=== PATIENT | female | born 1985 | race Caucasian/White ===

== ENCOUNTER 2018-05-12 05:27 | Inpatient (IN) | payer MEDICAID ==
[~2018-05-12] VITALS: Ht 154.9 cm; Wt 86.9 kg
[~2018-05-12 05:27] MED LIST: FERR27TA PO; PREN1TAB49 PO
[2018-05-12] MEDS ORDERED: CEFAZOLIN 2 GM/50 ML (PMX) 50 ML IVPB SCH (06:00)
[2018-05-12] MEDS ORDERED: CARBOPROST 250 MCG INJ IM PRN (06:00)
[2018-05-12] MEDS ORDERED: OXYTOCIN 30 UNITS/LR 500 ML IV SCH (06:00)
[2018-05-12] MEDS ORDERED: METHYLERGONOVINE 0.2 MG INJ IM PRN (06:00)
[2018-05-12] MEDS ORDERED: MISOPROSTOL 200 MCG TAB PR PRN ×2 (06:00→08:00)
[2018-05-12] MEDS ORDERED: OXYTOCIN 30 UNITS/LR 500 ML IV PRN (06:00)
[2018-05-12 06:06] VITALS: Ht 154.9 cm; Wt 86.9 kg
[2018-05-12] MEDS ORDERED: EPHEDrine SULFATE 50 MG/5 ML SYG ONE (07:00)
[2018-05-12] MEDS ORDERED: LACTATED RINGER'S 1,000 ML IV ONE (07:21)
--- NOTE | 2018-05-12 07:21 | PREAC ---
Date/Time of Note Date/Time of Note DATE: 05/12/18 TIME: 07:20 Anesthesia Eval and Record Evaluation Time Pre-Procedure Interview DATE: 05/12/18 TIME: 07:20 Age 33 Sex female NPO: 8 hrs Preoperative diagnosis intrauterine Planned procedure repeat c section and bilateral tubal ligation Past Medical History Past Medical History: Includes Pulm: Asthma : : (3), Para:, Gestational age: (39.1), Gestational diabetes Surgery & Anesthesia Issues No known issue Meds Anticoagulation: No Beta Alistair within 24 hr: No Reason Beta Alistair not given: Pt. not on B-Alistair Reported Medications Ferrous Sulfate (Iron) 1 Tab Tablet, 1 TAB PO 05/13/12 Vits W-Ca,Fe,Fa(<1MG) () 1 Tab Tablet, 1 TAB PO 05/13/12 Current Medications Lactated Ringer's 1,000 ml @ 125 mls/hr Q8H IV ; Start 05/12/18 at 05:41 Cefazolin Sodium/ Dextrose 50 ml @ 100 mls/hr ONCE IVPB ; Start 05/12/18 at 06:00 Oxytocin/Lactated Ringer's 500 ml @ 125 mls/hr POST IV ; Start 05/12/18 at 06:00 Oxytocin/Lactated Ringer's 500 ml @ 0 mls/hr ONCE PRN IV .VAGINAL BLEEDING; Start 05/12/18 at 06:00 Methylergonovine Maleate (Methergine) 0.2 mg ONCE PRN IM .VAGINAL BLEEDING; Start 05/12/18 at 06:00 Carboprost Tromethamine (Hemabate) 250 mcg ONCE PRN IM .VAGINAL BLEEDING; Start 05/12/18 at 06:00 Misoprostol (Cytotec) 1,000 mcg ONCE PRN WI .VAGINAL BLEEDING; Start 05/12/18 at 06:00 Meds reviewed: Yes Allergies Uncoded Allergies: CONTRAST DYE (Allergy, Intermediate, EXTREME VOMITTING, 05/12/18) NKA (Allergy, 05/13/12) Allergies Reviewed: Yes Labs/Studies Labs Reviewed: Reviewed by anesthesiologist Result Diagram: 05/12/18 0600 Laboratory Tests 05/12/18 06:00 Blood Bank Test 05/12/18 06:00 Antibody Screen NEGATIVE Blood Type O POSITIVE Rh Immune Globulin Candidate NO test: N/A Pre-procedure Exam Airway: Adequate mouth opening, Adequate thyromental dist Mallampati: Mallampati II Teeth: Normal Lung: Normal Heart: Normal ASA Physical Status ASA physical status: 2 Emergency: None Planned Anesthetic Neuraxial: Spinal Planned Pain Management Sub-arachniod narcotics, Parenteral pain med Pre-operative Attestations Prior to commencing anesthesia and surgery, the patient was re-evaluated, there was verification of: *The patient's identity *The results of appropriate recent lab work and preoperative vital signs *The above evaluation not changing prior to induction *Anesthetic plan, risk benefits, alternative and complications discussed with patient/family; questions answered; patient/family understands, accepts and wishes to proceed. TRICE ESQUIVEL MD May 12, 2018 07:20
[2018-05-12] MEDS ORDERED: CITRIC ACID/NA CITRATE 30 ML CUP PO ONE (07:30)
[2018-05-12] MEDS ORDERED: FAMOTIDINE 20 MG INJ IV ONE (07:30)
[2018-05-12] MEDS ORDERED: METOCLOPRAMIDE 10 MG INJ IV ONE (07:30)
[2018-05-12] MEDS ORDERED: morphine SULFATE/PF (10 MG/10 ML) INJ ONE (07:39)
--- NOTE | 2018-05-12 07:39 | HP ---
Date/Time of Note Date/Time of Note DATE: 05/12/18 TIME: 07:37 OB - History Hx of Present Free Text/Dictation 33 O with EDC 05/17/2018 with IUP at 39.2 weeks with history of previous delivery, who desires to have repeat delivery and Permanent sterilization. I discussed with the patient the risks, benefits, indications, and alternatives of procedure including but not limited to risks of infection, bleeding, damage to other organs, bowel, bladder, hernia formation, scar formation, possibility of blood transfusion, possible need for emergency hysterectomy, as well as the fact that tubal ligation may fail and there is 1 to 2% risk of failure over lifetime of tubal ligations and the fact that tubal ligation is permanent and irreversible. She was allowed to ask questions. All her questions were answered. Informed consent has been obtained. Care: Good Care Ultrasounds: Normal mid trimester US Obstetrical Complications: Gestational Diabetes Medical Complications: None Past Family/Social History * Past Medical, Surgical, Family and Obstetric Histories reviewed from chart. OB Admission Exam Physical Exam HEENT: WNL Heart: Rhythm Normal Lungs: Clear, Equal Abdomen: WNL Extremities: Normal Reflexes: Normal Last 72 hours Lab Results CBC & BMP 05/12/18 06:00 OB Assessment/Plan Other Assessment: Assessment: IUP 39 weeks h/o previous Desires repeat Desires permanent sterilization GDM, Diet control Other plan: Repeat Delivery Tubal ligation may be done by either salpingectomy or modified Osiel BTL RAINER LAN MD May 12, 2018 07:39
[2018-05-12] MEDS ORDERED: LACTATED RINGER'S 1,000 ML IV SCH (07:40)
[2018-05-12] MEDS ORDERED: PHENYLephrine (100 MCG/ML) 5ML SYG ONE (07:51)
[2018-05-12] MEDS ORDERED: MEPERIDINE 25 MG INJ IV PRN (08:00)
[2018-05-12] MEDS ORDERED: FENTAnyl 50 MCG/ML VIAL IV PRN ×3 (08:00)
[2018-05-12] MEDS ORDERED: LANOLIN HPA 1 PKT TOP PRN (08:00)
[2018-05-12] MEDS ORDERED: NA PHOSPHATE/BIPHOS 133 ML ENEMA PR PRN (08:00)
[2018-05-12] MEDS ORDERED: DIPHENHYDRAMINE 50 MG INJ IV PRN ×2 (08:00→09:00)
[2018-05-12] MEDS ORDERED: ONDANSETRON 4 MG INJ IV PRN ×2 (08:00→09:00)
[2018-05-12] MEDS ORDERED: HYDROmorphONE 1 MG/5 ML IV SYRINGE IV PRN ×3 (08:00)
[2018-05-12] MEDS ORDERED: PROCHLORPERAZINE 10 MG INJ IV PRN (08:00)
[2018-05-12] MEDS ORDERED: KETOROLAC 30 MG INJ IV PRN (08:00)
[2018-05-12] MEDS ORDERED: ONDANSETRON 4 MG INJ ONE (08:10)
[2018-05-12] MEDS ORDERED: OXYTOCIN 30 UNITS/LR 500 ML IV ONE (08:23)
--- NOTE | 2018-05-12 08:45 | OPR ---
Date/Time of Note Date/Time of Note DATE: 05/12/18 TIME: 08:42 Operative Report Procedure Date: May 12, 2018 Preoperative Diagnosis h/o Previous deliveries x 2 Desires permanent Sterilization Postoperative Diagnosis Same Operation/Procedure Performed Repeat delivery Bilateral distal salpingectomies Surgeon Lester Thomas MD Validation Specialist Trevor Bradley MD Anesthesia Type: spinal Estimated Blood Loss: other (700) Transfusion none Specimen Distal ends of both tubes Grafts/Implants none Tubes/Drains Wagner Cath Complications none Pt Condition Post Procedure: stable Disposition: PACU Procedure Description The risks, benefits, indications, alternatives of procedure including, but not limited to risk of infection, bleeding, damage to other organs, bowel, bladder, hernia formation, scar formation, possibility of blood transfusions, the risks of tubal ligation such as failure and future pregnancies were discussed with the patient. The fact that BTL is permanent and irreversible also discussed with patient. She was allowed to ask questions. All her questions were answered. Informed consent was obtained. DESCRIPTION OF PROCEDURE: She was taken to the operating room. Spinal anesthesia was induced. She was prepped and draped in the usual sterile fashion. Surgical time out one. Anesthesia was tested to be adequate. With permission from anesthesiologist, a knife was used to make a Pfannenstiel skin incision. The incision was taken down in layers. The fascia was cut, undermined and from the underlying muscle using sharp and blunt dissection. All the bleeders were cauterized. Peritoneum was entered bluntly. A low transverse incision was developed over the uterus. Amniotic fluid was clear and adequate. A viable infant in vertex presentation was delivered without any difficulty. The cord was clamped and cut, handed to awaiting team. Placenta was then delivered. Uterus was exteriorized, wrapped around a moist lap. Inside uterus was cleaned using a dry lap. All residual membranes were removed. The uterine incision was then closed using #1 Monocryl in 2 layers. A 5 cm distal end of the right tube was ligated 3 times using 0 plain tie and the ligated portion was cut, sent to pathology. Same procedure was done on the contralateral side. The uterus was inserted back inside the abdominal cavity. Irrigation was done carefully. Careful evaluation of the uterine incision revealed no further bleeding. The tubal ligation sites were evaluated carefully. There was no bleeding. The peritoneum and rectus muscles and fascia were evaluated. All bleeders cauterized. Peritoneum was closed using 2-0 Monocryl. At this time, the count was correct. Rectus muscle was reapproximated using 2-0 Monocryl. Rectus fascia was closed using #1 Vicryl. Subcutaneous tissue was cleaned and irrigated. All bleeders cauterized and the skin closed using Insorb. All count s correct. LESTER THOMAS MD May 12, 2018 08:45
--- NOTE | 2018-05-12 08:57 | PAC ---
Date/Time of Note Date/Time of Note DATE: 05/12/18 TIME: 08:56 Post-Anesthesia Notes Post-Anesthesia Note Activity: WNL Respiratory function: WNL Cardiovascular function: WNL Mental status: Baseline Pain reasonably controlled: Yes Hydration appropriate: Yes Nausea/Vomiting absent: Yes Comments BP: 101/58 HR: 89 RR: 15 T: 97.4 SaO2: 97% TRICE ESQUIVEL MD May 12, 2018 08:57
[2018-05-12] MEDS ORDERED: NALOXONE (0.4 MG/ML) INJ IV PRN (09:00)
[2018-05-12] MEDS ORDERED: NALBUPHINE HCL (10 MG/1 ML) INJ IV PRN (09:00)
[2018-05-12] MEDS ORDERED: HYDROmorphONE 0.5 MG/0.5 ML SYG IV PRN ×2 (09:00)
[2018-05-12] MEDS: SENNA/DOCUSATE NA (8.6MG/50MG) TAB PO SCH ×2 (09:00→21:33)
[2018-05-12] MEDS ORDERED: ZOLPIDEM 5 MG TAB PO PRN (09:00)
[2018-05-12] MEDS: LACTATED RINGER'S 1,000 ML IV SCH ×3 (09:26→20:21)
[2018-05-12 11:30] VITALS: BP 113/54; PULSE 88; RESP 18
[2018-05-12] MEDS: KETOROLAC 30 MG INJ IV PRN ×2 (11:43→17:54)
[2018-05-12] MEDS ORDERED: IBUPROFEN 600 MG TAB PO SCH (12:00)
[2018-05-12 16:00] VITALS: BP 106/56; PULSE 100; RESP 18
[2018-05-12 20:20] VITALS: BP 98/50; PULSE 95; RESP 19
[2018-05-13] VITALS (7 sets, daily range): BP systolic 91–121; BP diastolic 49–70; PULSE 60–98; RESP 18–21
[2018-05-13] MEDS: KETOROLAC 30 MG INJ IV PRN ×2 (00:20→05:51)
[2018-05-13] MEDS: LACTATED RINGER'S 1,000 ML IV SCH (04:33)
[2018-05-13] MEDS: SENNA/DOCUSATE NA (8.6MG/50MG) TAB PO SCH ×2 (09:06→21:18)
--- NOTE | 2018-05-13 11:13 | QN ---
Documentation Comment s/p c/s Subjective: no complaint Objective: Afebrile, VSS NAD A&O Abdomen: soft, appropriate tender Incision: no sign of bleeding/infection mild lochia Extremity: 1+ edema bilaterally Assessment: S/p C/S + BTL POD # 1 Recovering Well Plan: current care RAINER LAN MD May 13, 2018 11:13
[2018-05-13] MEDS: IBUPROFEN 600 MG TAB PO SCH ×3 (11:40→23:46)
[2018-05-13] MEDS: OXYCODONE/ACETAMINOPHEN (5/325) TAB PO PRN ×3 (11:41→21:37)
[2018-05-14 04:00] VITALS: BP 106/59; PULSE 74; RESP 20
[2018-05-14] MEDS: IBUPROFEN 600 MG TAB PO SCH ×4 (05:32→23:31)
--- NOTE | 2018-05-14 07:46 | DS ---
Date/Time of Note Date/Time of Note DATE: 05/14/18 TIME: 07:44 Obstetrical Discharge Record Final Diagnosis Final Diagnosis: Term delivered Vaginal Delivery Obstetrical Delivery: Bilateral Tubal Ligation Section Section: Repeat Complications Augmentation: No Induction: No Rupture of Membranes: No Condition on Discharge Physical Assessment Voiding: Yes Bowel Movement: Yes Breast: Soft, non-tender, Filling Fundus: Firm Abdomen and Incision: soft, appropriate tenderness. Incision is without any sign of infection Calf Tenderness: No Patient Condition: Good RAINER LAN MD May 14, 2018 07:46
[2018-05-14 08:15] VITALS: BP 102/54; RESP 18
[2018-05-14] MEDS: SENNA/DOCUSATE NA (8.6MG/50MG) TAB PO SCH ×2 (09:36→21:17)
[2018-05-14 15:45] VITALS: BP 107/53; PULSE 84; RESP 18
[2018-05-14 19:52] VITALS: BP 99/55; PULSE 88; RESP 19
[2018-05-14] MEDS: OXYCODONE/ACETAMINOPHEN (5/325) TAB PO PRN (22:06)
[2018-05-15 03:30] VITALS: BP 99/57; PULSE 88; RESP 20
[2018-05-15] MEDS: IBUPROFEN 600 MG TAB PO SCH ×2 (05:36→13:07)
[2018-05-15] MEDS ORDERED: DIPHTH/TET/ACEL PERTUSS (ADULT) 0.5 ML VIAL IM* ONE (09:00)
[2018-05-15] MEDS ORDERED: MEASLES,MUMPS,RUBELLA VACCINE INJ SC* ONE (09:00)
[2018-05-15] MEDS: SENNA/DOCUSATE NA (8.6MG/50MG) TAB PO SCH (09:31)
== END 2018-05-15 13:40 | disposition home or self-care (01) | DRG 785 ==
LOC: L-D 05:27 → PP1 11:20
PROVIDERS: ADMIT Specialist; ATTEND Specialist
PROC: 0UB70ZZ Excision of Bilateral Fallopian Tubes, Open Approach (ICD-10-PCS; 2018-05-12)
PROC: 10D00Z1 Extraction of Products of Conception, Low, Open Approach (ICD-10-PCS; principal; 2018-05-12 07:30)
DX: O34.219 Maternal care for unspecified type scar from previous cesarean delivery (principal); O24.420 Gestational diabetes mellitus in childbirth, diet controlled; Z3A.39 39 weeks gestation of pregnancy; Z37.0 Single live birth; Z30.2 Encounter for sterilization
CPT/HCPCS: 85025; 85610; 85730; 86592; 86850; 86900; 86901; 87340; 88302; J0690; J1170; J1200; J1885; J2274; J2370; J2405; J2590; J2765; J7120